=== PATIENT | female | born 1990 | race Caucasian/White ===

== ENCOUNTER 2020-03-23 02:34 | Emergency (ER) | payer BC ==
[~2020-03-23] VITALS: Ht 162.6 cm; Wt 80.7 kg
== END 2020-03-23 06:36 | disposition home or self-care (01) ==
LOC: ED 02:34
DX: O03.9 Complete or unspecified spontaneous abortion without complication (principal)
CPT/HCPCS: 76801; 76817; 80053; 81001; 84702; 85025; 86900; 86901; 99284-25

== ENCOUNTER 2020-07-22 22:31 | Emergency (ER) | payer BC, OTHER ==
[~2020-07-22] VITALS: Ht 162.6 cm; Wt 87.5 kg
== END 2020-07-23 01:55 | disposition home or self-care (01) ==
LOC: ED 22:31
DX: O20.0 Threatened abortion (principal); Z3A.12 12 weeks gestation of pregnancy; Z87.891 Personal history of nicotine dependence
CPT/HCPCS: 76801; 80053; 81001; 84702; 85025; 86900; 86901; 99284-25

== ENCOUNTER 2021-02-03 11:34 | Emergency (ER) | payer BC, OTHER ==
[~2021-02-03] VITALS: Ht 162.6 cm; Wt 101.0 kg
== END 2021-02-03 15:16 | disposition home or self-care (01) ==
LOC: ED 11:34
DX: O98.513 Other viral diseases complicating pregnancy, third trimester (principal); U07.1 COVID-19; Z87.891 Personal history of nicotine dependence
CPT/HCPCS: 80053; 85025; 99284-25; C9803; M0243; Q0244; U0003

== ENCOUNTER 2021-02-06 05:33 | Inpatient (IN) | payer BC, OTHER ==
--- NOTE | 2021-02-06 08:18 | PR ---
[facility] [address] [place], [place] [address] Signed Progress Notes IP Datetime Report Generated by CPN: 02/06/2021 08:18 PROGRESS NOTES: [id number] Impression: Non-reassuring Heart Rate Procedures: Intrauterine Pressure Catheter; Sterile Vag Exam Plan: Deliver- Section Informed Consent Obtain: Section Delivery; Risks, Benefits and Alternatives Discussed VITAL SIGNS: [id number] Vital Signs: Reviewed; Within Normal Limits EXAM: [id number] Dilatation: 6.0 Effacement: 80 Station: -2 Contractions: q 2 to 3 min MEMBRANES: [id number] Amniotic Fluid Color: Meconium, Heavy Comments: Continued issues with status despite multiple position changes. Contractions are inadequate but cannot increase strength given recurrent lates. I feel C/S is the safest option for delivery. PARQ done for C/S and consent obtained. FETUS A: [id number] FHR Baseline: 145 Variability: Moderate 6-25bpm Accelerations: 15X15 Decelerations: Late FHR Category: Category II Presentation: Vertex Comments on Fetus A: lates FETUS B: [id number] Signing Physician: Liza Ceja MD Copies: ~ *Electronically Signed* 02/06/21817 LIZA CEJA MD PATIENT NAME: BRANDON MARTINDENIA Pham PROGRESS NOTE DATE OF : 91 PHYSICIAN: LIZA CEJA MD RPT #: [id number] REPORT IS CONFIDENTIAL AND NOT TO BE RELEASED WITHOUT AUTHORIZATION
--- NOTE | 2021-02-06 09:50 | NUR ---
02/06/21 0950 Daria Foreman 0918 PT ARRIVED TO PACU ON RA, PT AT BEDSIDE. VSS. IV IN LEFT HAND AND INFUSING LR WITH 20 PIT. 0925 PT BLOWING HER NOSE AND VSS. 0949 PLAN OF CARE DISCUSSED. PT DENIES PAIN AND NAUSEA. PT TOOK SMALL SIP OF WATER AND HOB INCREASED SLIGHTLY.
--- NOTE | 2021-02-07 10:02 | PR ---
[facility] [address] [facility] [place], [place] [address] Signed PP Progress Notes Datetime Report Generated by CPN: 02/07/2021 10:02 SUBJECTIVE: [id number] Pain: Within Normal Limits Nausea/Vomiting: Denies Flatus: No Vital Signs: [id number] Vital Signs: Reviewed; Within Normal Limits EXAM: Ongoing Cardiovascular: Normal Respiratory: Normal Abdomen/Uterus: Abnormal Lochia: Normal Vulva/Perineum: Not Done Breasts: Not Done CVA Tenderness: Not Done Extremities: Normal Incision: Normal Progress: Normal Exam Comments: Abdomen with active BS. Fundus firm, NT @ U-2. H/H 12.3/36.1, WBC 6.9, 173k IMPRESSION/PLAN/PROCEDURES: [id number] Impression: Normal Progression Other Plans: ambulate Progress Notes: Doing well. Will increase activity. Possible D/C tomorrow. Signing Physician: Liza Ceja MD Copies: ~ *Electronically Signed* 02/07/21 1002 LIZA CEJA MD PATIENT NAME: MARTINSTEPHANIE C PROGRESS NOTE DATE OF : 91 PHYSICIAN: LIZA CEJA MD RPT #: [id number] REPORT IS CONFIDENTIAL AND NOT TO BE RELEASED WITHOUT AUTHORIZATION
--- NOTE | 2021-02-08 09:04 | PR ---
[facility] [address] [facility] [place], [place] [address] Signed PP Progress Notes Datetime Report Generated by CPN: 02/08/2021 09:04 SUBJECTIVE: [id number] Pain: Within Normal Limits Nausea/Vomiting: Denies Flatus: Yes Bowel Movement: Yes Vital Signs: [id number] Vital Signs: Reviewed; Within Normal Limits EXAM: Met Cardiovascular: Normal Respiratory: Normal Abdomen/Uterus: Abnormal Lochia: Normal Vulva/Perineum: Not Done Breasts: Not Done CVA Tenderness: Not Done Extremities: Normal Incision: Normal Progress: Normal Exam Comments: Abdomen with active BS. Fundus firm, NT @ U-2. IMPRESSION/PLAN/PROCEDURES: [id number] Impression: Normal Progression Plan: Remove Kp; Discharge Other Plans: ambulate Procedures: None Progress Notes: Doing well. I do think she is stable for D/C. Signing Physician: Liza Ceja MD Copies: ~ *Electronically Signed* 02/08/21903 LIZA CEJA MD PATIENT NAME: STEPHANIE MARTIN PROGRESS NOTE DATE OF : 91 PHYSICIAN: LIZA CEJA MD RPT #: [id number] REPORT IS CONFIDENTIAL AND NOT TO BE RELEASED WITHOUT AUTHORIZATION
--- NOTE | 2021-02-11 08:18 | OR ---
[facility] [address] [place], [place] [address] Signed DATE OF OPERATION: 02/06/2021 SURGEON: Troy Ceja MD PAPER BAG MAKING MACHINIST: Dr. Olvera. PREOPERATIVE DIAGNOSES: Term , non-reassuring heart rate tracing, active coronavirus disease. POSTOPERATIVE DIAGNOSES: Term , non-reassuring heart rate tracing, delivered and active coronavirus disease. PROCEDURE: Primary section with low segment transverse uterine incision. ANESTHESIA: Epidural. ESTIMATED BLOOD LOSS: 600 mL. DRAINS: Mora catheter. INDICATIONS AND FINDINGS: The patient is a 31-year-old female, 3, para 0, VIP 1, SAB 1, who was admitted at 40 and 2/7th weeks for labor. She was 5 cm on admission. She had spontaneous rupture of membranes shortly afterwards with thick meconium noted. heart tones were not reassuring, overall though there were times when it improved, but she was having recurrent late decels and occ severe variable prolonged decelerations. The decision was made to proceed with operative delivery as she had made little progress in her labor and delivery was still remote. She was counseled and taken to the operating room where she was delivered of a little girl from the ROP position via lower segment transverse uterine incision with Apgars of 8 and 9 and weight of 7 pounds 14 ounces. The uterus, tubes, ovaries, and placenta appeared normal. There was thick meconium at delivery. There was a cord around the neck loosely as well. DESCRIPTION OF PROCEDURE: Electronically Signed By: TROY CEJA MD 02/11/21 0818 PATIENT NAME: STEPHANIE MARTIN OPERATIVE REPORT DATE OF : 91 REPORT #: [id number] PHYSICIAN: TROY CEJA MD PCP: NO PRIMARY CARE PHYSICIAN REPORT IS CONFIDENTIAL AND NOT TO BE RELEASED WITHOUT AUTHORIZATION [facility] [address] [place], [place] [address] Signed The patient was prepped and draped in the supine position. A Pfannenstiel skin incision was made and carried down to the fascia. The incision was extended laterally. The inferior and superior fascial flaps were then created. The muscles were bluntly divided and the peritoneum opened bluntly and the incision extended bluntly. The Justin retractor was then placed. The uterine incision was made at the upper border of the peritoneal reflection. The baby was delivered with the above findings and handed off to the pediatric staff in attendance. The placenta was removed manually. The uterus was explored with a lap tape assuring no remaining fragments. The uterus was closed in 2 layers using 0 Monocryl. The first layer was a running locking stitch. The 2nd was a vertical imbricating stitch. Bleeding points on the peritoneum were controlled with cautery. The abdomen was then copiously irrigated and inspected and good hemostasis was noted. The retractor was removed and the peritoneum identified. An ACell graft was then laid over the lower segment to aid in healing. The peritoneum was then closed with a running suture of 3-0 Vicryl. The muscles were brought together with interrupted sutures of 0 Vicryl. Bleeding points on the muscle layer were controlled with cautery This layer was irrigated, inspected and good hemostasis noted. A Cell powder was then sprinkled over the muscles to aid in healing. The fascia was then closed from each angle to the midline with a running suture of 0 Vicryl. The subcu tissue was irrigated. Bleeding points were controlled with cautery. The deep space was closed with interrupted sutures of 3-0 Vicryl. The skin was closed with kalpana. All sponge and needle counts were correct. She tolerated the procedure well and was taken to the recovery room in good condition. Troy Ceja MD PJW/MODL /[id number] cc: Dr. Olvera Copies: ~ Electronically Signed By: TROY CEJA MD 02/11/21 0818 PATIENT NAME: STEPHANIE MARTIN OPERATIVE REPORT DATE OF : 91 REPORT #: [id number] PHYSICIAN: TROY CEJA MD PCP: NO PRIMARY CARE PHYSICIAN REPORT IS CONFIDENTIAL AND NOT TO BE RELEASED WITHOUT AUTHORIZATION
--- NOTE | 2021-02-11 16:48 | PATH ---
[facility] [address] [place], [place] [address] Signed SPECIMEN(S): A PLACENTA SPECIMEN SOURCE: A. PLACENTA CLINICAL HISTORY: Mother's age: 31. OB history: . Gestational age: 40 and 2/7. Infant's weight: 7 lbs 14 oz. score: 8/9. Rh O positive (Rhogam no). Antibody screen: Negative. Maternal serologies: Rubella immune, RPR NR, GBS negative. Specific issues of concern: COVID positive. FINAL PATHOLOGIC DIAGNOSIS: Placenta, delivery: - Mature reyes placenta with three-vessel umbilical cord (591 grams; 75th to 90th percentile for reported 40+2 weeks gestational age). - Mild acute chorionitis (grade 1/2; stage 1/3) with inflammatory response in the chorionic vessels (grade 1/2; stage 1/3). - Remote placental infarctions involving less than 5% of the placental parenchyma. BRP:sl:C2NR MICROSCOPIC EXAMINATION: Histologic sections of all submitted blocks are examined by light microscopy. These findings, together with the gross examination, support the pathologic diagnosis. GROSS DESCRIPTION: The specimen, labeled "KS, placenta," is received in formalin and consists of a reyes discoid placenta with the following parameters: Umbilical Cord: Insertion eccentric, measurement 21.0 x 1.2 cm; trivascular; hypo-coiled. Cord coiling index (per 10 cm): 2. Lesions: Not grossly identified. Membranes: Insertion site: Marginal, brown-syed, green-tinted and opaque, rupture site 4.0 cm from edge of disc. Other: Not grossly identified. Chorionic Plate: Normal radiating vascular pattern, blue-purple and shiny. Lesions: One yellow-syed subchorionic rubbery lesion (3.5 x 2.5 x 1.0 cm) located 3.0 cm from insertion umbilical cord. Other: Not grossly identified. Maternal Surface: Normal cotyledons, intact. Lesions: Multiple brown-syed, rubbery peripheral lesion (0.9 x 0.5 cm and extending 1.0 cm into the PATIENT NAME: STEPHANIE MARTIN PATHOLOGY DATE OF : 91 REPORT #: [id number] PHYSICIAN: GAGE LOPEZ PCP: NO PRIMARY CARE PHYSICIAN REPORT IS CONFIDENTIAL AND NOT TO BE RELEASED WITHOUT AUTHORIZATION [facility] [address] [place], [place] [address] Signed placenta). Measurement: 18.4 x 17.0 x 2.7 cm. Weight (trimmed): 591 grams. Cut Surface: Maroon and spongy. Lesions: Additional yellow-syed, rubbery intraparenchymal lesion (1.5 x 1.0 x 0.8 cm). Basal plate fibrin measures 0.1 cm in thickness. Other Findings: Not grossly identified. Cassette Summary: (A1) Membranes and umbilical cord (A2) Subchorionic and maternal surface lesion (A3) Intraparenchymal lesion (A4-A5) Placenta parenchyma AC (under the direct supervision of a pathologist) The Gross Description was prepared using a voice recognition system. The report was reviewed for accuracy; however, sound-alike word errors, addition and/or deletions may occur. If there is any question about this report, please contact Client Services. PERFORMING LABORATORY: The technical component was performed by [facility], [address] [place] [address] (Director Of Cardiology: Edna Leal MD; CLIA# [id number]). Professional interpretation was performed by [facility], [facility], [address] [address] (CLIA# [id number]). Diagnostician: Brice Samson MD Pathologist Electronically Signed 02/11/2021 Copies: ~ PATIENT NAME: STEPHANIE MARTIN PATHOLOGY DATE OF : 91 REPORT #: [id number] PHYSICIAN: GAGE PATHOLOGY PCP: NO PRIMARY CARE PHYSICIAN REPORT IS CONFIDENTIAL AND NOT TO BE RELEASED WITHOUT AUTHORIZATION
== END 2021-02-08 12:50 | disposition home or self-care (01) | DRG 786 ==
LOC: FBCO 05:33 → FBC 06:00
PROVIDERS: ADMIT Obstetrics & Gynecology; ATTEND Obstetrics & Gynecology
PROC: 10H07YZ Insertion of Other Device into Products of Conception, Via Natural or Artificial Opening (ICD-10-PCS; 2021-02-06)
PROC: 8E0ZXY6 Isolation (ICD-10-PCS; 2021-02-06)
PROC: 10D00Z1 Extraction of Products of Conception, Low, Open Approach (ICD-10-PCS; principal; 2021-02-06 08:55)
DX: O76 Abnormality in fetal heart rate and rhythm complicating labor and delivery (principal); U07.1 COVID-19; O98.52 Other viral diseases complicating childbirth; Z3A.40 40 weeks gestation of pregnancy; Z37.0 Single live birth; Z67.40 Type O blood, Rh positive; O69.81X0 Labor and delivery complicated by cord around neck, without compression, not applicable or unspecified; O77.0 Labor and delivery complicated by meconium in amniotic fluid
CPT/HCPCS: 01961; 82803; 85027; A9270; J0456; J0690; J1650; J1885; J2274; J2405; J2590; J2795; J3010; J3105; J7060; J7121

== ENCOUNTER 2023-03-26 06:50 | Day surgery (SDC) | payer BC, OTHER ==
[2023-03-16 14:21] VITALS: BP 119/83
[~2023-03-26] VITALS: Ht 162.6 cm; Wt 98.2 kg
[~2023-03-26 06:50] MED LIST: LEVOTHYROXINE100 MC2 PO
[2023-03-26 07:14] VITALS: BP 133/84
--- NOTE | 2023-03-26 07:45 | NUR ---
DS ROUNDS. 15 MINUTES. PROVIDED HOSPITALITY. PROVIDED SUPPORTIVE PRESENCE. PROVIDED PRAYER. PT EXPRESSED GRATITUDE.
[2023-03-26] MEDS ORDERED: HYDROCODON-ACE1 EA10 PO (08:47)
--- NOTE | 2023-03-26 08:55 | NUR ---
03/26/23 0855 Samantha Hernandez 0846 PT TO PACU AWAKE, ALERT AND TALKING. DENIES PAIN AND NAUSEA.
[2023-03-26 09:01] VITALS: BP 132/91
--- NOTE | 2023-03-27 09:35 | OR ---
[facility] [address] [place], [place] [address] Signed DATE OF OPERATION: 03/26/2023 SURGEON: Dallin Hernandez MD PREOPERATIVE DIAGNOSIS: Carpal tunnel syndrome, right. POSTOPERATIVE DIAGNOSIS: Carpal tunnel syndrome, right. PROCEDURE PERFORMED: Right carpal tunnel release. DISTRICT GAUGER: None. ANESTHESIA: Evangelist block. TOURNIQUET TIME: 20 minutes. BRIEF HISTORY: Inez is a 33-year-old female with progressive worsening of pain and numbness in her hand. Nerve conduction studies were consistent with carpal tunnel. Risks, benefits, and alternatives were discussed with her once conservative treatment had failed. She elected to proceed. DESCRIPTION OF PROCEDURE: Once consent was obtained, she was taken to the operating room. After adequate anesthesia, she was placed on the day surgery bed with a hand table. The arm was then prepped and draped in a standard sterile fashion after establishment of the [place] block. The wrist was approached through a 1.5 cm incision and the distal wrist crease carried through skin and subcutaneous tissue. The palmaris longus was quite robust and was retracted and protected. Under loupe magnification, the transverse carpal ligament was identified and dissected free of overlying soft tissue. It was then released proximally a centimeter and distally to the distal extent. This was palpating using the [place] to confirm complete release. The wound was then copiously irrigated with normal saline, closed with 3-0 nylon and injected with 7 mL of 0.25% Marcaine plain. The wound was then Electronically Signed By: DALLIN HERNANDEZ MD 03/27/23 0935 PATIENT NAME: INEZ MARTIN OPERATIVE REPORT DATE OF : 91 REPORT #: [id number] PHYSICIAN: DALLIN HERNANDEZ MD PCP: INDIRA GRIMES PA-C REPORT IS CONFIDENTIAL AND NOT TO BE RELEASED WITHOUT AUTHORIZATION [address] [place], [place] [address] Signed dressed with bacitracin, Adaptic, 4x8's, and gauze. She tolerated the procedure well. All sponge, needle, and instrument counts were correct. Dallin Hernandez MD BA/DEANL /[id number] Copies: ~ Electronically Signed By: DALLIN HERNANDEZ MD 03/27/23 0935 PATIENT NAME: INEZ MARTIN OPERATIVE REPORT DATE OF : 91 REPORT #: [id number] PHYSICIAN: DALLIN HERNANDEZ MD PCP: INDIRA GRIMES PA-C REPORT IS CONFIDENTIAL AND NOT TO BE RELEASED WITHOUT AUTHORIZATION
== END 2023-03-26 09:12 | disposition home or self-care (01) ==
LOC: DS 06:50
PROVIDERS: ATTEND Specialist
PROC: 01N50ZZ Release Median Nerve, Open Approach (ICD-10-PCS; principal; 2023-03-26 08:50)
DX: G56.01 Carpal tunnel syndrome, right upper limb (principal); E07.9 Disorder of thyroid, unspecified
CPT/HCPCS: 01810; 84703; J0690; J1885; J2250; J2405; J2704; J7121

== ENCOUNTER 2024-11-06 10:42 | Inpatient (IN) | payer BC ==
[~2024-11-06] VITALS: Ht 160 cm; Wt 112.5 kg
[~2024-11-06 10:42] MED LIST changes: +HYDROCODON-ACE1 EA10 PO
[2024-11-07] MEDS ORDERED: LACTATED RINGER'S 1,000 ML IV SCH ×2 (06:00→09:08)
[2024-11-07] MEDS ORDERED: LACTATED RINGER'S 2,000 ML IV PRN (06:00)
[2024-11-07 06:21] LABS: MCH 32.4 PG (25.6-32.2); MCHC 34.6 g/dL (32.2-35.5); MCV 93.5 fL (79.4-94.8); RBC 3.83 M/uL (3.93-5.22)
[2024-11-07 06:30] VITALS: BP 113/66
[2024-11-07] MEDS ORDERED: SOD+POT BICARB/CITRIC ACID 2 EA TABLET.EFF XX ONE (06:30)
[2024-11-07 06:34] LABS: AMPHETAMINES, URINE NEGATIVE (NEGATIVE); BARBITURATES, URINE NEGATIVE (NEGATIVE); BENZODIAZEPINE, URINE NEGATIVE (NEGATIVE); CANNABINOID, URINE NEGATIVE (NEGATIVE); COCAINE, URINE NEGATIVE (NEGATIVE); ECSTASY, URINE NEGATIVE (NEGATIVE); FENTANYL, URINE NEGATIVE (NEGATIVE); METHADONE, URINE NEGATIVE (NEGATIVE); OPIATES, URINE NEGATIVE (NEGATIVE); OXYCODONE, URINE NEGATIVE (NEGATIVE); PHENCYCLIDINE, URINE NEGATIVE (NEGATIVE)
[2024-11-07 07:00] LABS: ABO O; ANTIBODY SCREEN NEGATIVE; RH POSITIVE
[2024-11-07] MEDS ORDERED: CEFAZOLIN SODIUM 2 GM/20 ML SYR IV SCH (07:00)
[2024-11-07] MEDS ORDERED: OXYTOCIN 10 UNITS/ML VIAL ONE (07:01)
[2024-11-07] MEDS ORDERED: LIDOCAINE HCL 2% 5 ML SDV ONE (07:01)
[2024-11-07] MEDS ORDERED: fentaNYL citrate 100 MCG/2 ML VIAL ONE (07:01)
[2024-11-07] MEDS ORDERED: BUPIVACAINE 0.75% IN DEXTROSE 2 ML AMP ONE (07:01)
[2024-11-07] MEDS ORDERED: MORPHINE SULFATE 1 MG/ML VIAL ONE (07:01)
[2024-11-07] MEDS ORDERED: PHENYLEPHRINE HCL 10 MG/ML VIAL ONE (07:40)
[2024-11-07] MEDS ORDERED: LACTATED RINGER'S 1,000 ML IV ONE (07:43)
[2024-11-07 08:02] LABS: IS CROSSMATCH COMPATIBLE
[2024-11-07] MEDS ORDERED: NALOXONE HCL 0.4 MG SYR IV PRN (08:15)
[2024-11-07] MEDS ORDERED: METOCLOPRAMIDE HCL 10 MG/2 ML SDV IV PRN ×2 (08:15→09:15)
[2024-11-07] MEDS ORDERED: KETOROLAC TROMETHAMINE 30 MG/ML VIAL IV PRN (08:15)
[2024-11-07] MEDS ORDERED: PROCHLORPERAZINE EDISYLATE 10 MG/2 ML VIAL IV PRN ×2 (08:15→09:15)
[2024-11-07] MEDS ORDERED: HYDROmorphone HCL 1 MG/ML SYR IV PRN (08:15)
[2024-11-07] MEDS ORDERED: Ropivacaine HCl 0.5% 30 ML VIAL ONE (08:17)
[2024-11-07] MEDS ORDERED: SODIUM CHLORIDE 0.9% 20 ML IV ONE (08:17)
[2024-11-07] MEDS ORDERED: SENNOSIDES/DOCUSATE 1 EA TAB PO SCH (09:05)
[2024-11-07] MEDS ORDERED: OXYCODONE HCL 5 MG TAB PO PRN (09:15)
[2024-11-07] MEDS ORDERED: OXYTOCIN/0.9 % SODIUM CHLORIDE 500 ML IV SCH (09:15)
[2024-11-07] MEDS ORDERED: PROMETHAZINE HCL 25 MG TAB PO PRN (09:15)
[2024-11-07] MEDS ORDERED: PROMETHAZINE HCL 25 MG SUPP PR PRN (09:15)
--- NOTE | 2024-11-07 09:19 | NUR ---
11/07/24 0919 Nunu Kendrick 0910-PATIENT ARRIVED TO ROOM 104 FOR RECOVERY. PATIENT AWAKE DENIES PAIN OR NAUSEA. MEDICATED IN OR FOR ITCHING. PATIENT LAYING SUPINE SR HR 70'S. IVF INFUSING LR WITH 20 PITOCIN TO RIGHT HAND CDI. OLIVAS CATHETER DRAINING YELLOW URINE. DAD AT BEDSIDE HOLDING BABY. 09-PATIENT SLEEPING RA 92% RR EVEN.
[2024-11-07 09:32] VITALS: BP 110/70
[2024-11-07] MEDS ORDERED: SIMETHICONE 80 MG CHEW PO SCH (11:00)
[2024-11-07] MEDS ORDERED: IBUPROFEN 600 MG TAB PO SCH (14:00)
[2024-11-07] MEDS ORDERED: ACETAMINOPHEN 325 MG TAB PO SCH ×2 (14:00→17:00)
--- NOTE | 2024-11-07 14:28 | OR ---
[address] [address] Signed DATE OF OPERATION: 11/07/2024 SURGEON: Natacha Jeong MD PREOPERATIVE DIAGNOSES: 1. Intrauterine at 39 and 3/7th weeks. 2. Prior section, declines trial of labor. 3. Desires ovarian cancer risk reducing surgery. POSTOPERATIVE DIAGNOSES: 1. Intrauterine at 39 and 3/7th weeks. 2. Prior section, declines trial of labor. 3. Desires ovarian cancer risk reducing surgery. PROCEDURE: Repeat low transverse section, bilateral salpingectomy. FINDINGS: Clear amniotic fluid, vigorous male infant in vertex presentation. Apgars of 8 and 8. Weight yet to be determined. Normal uterus, tubes, and ovaries. QUANTITATIVE BLOOD LOSS: 493 mL. IV FLUID: 1700 mL crystalloid. URINE OUTPUT: 25 mL clear urine. DRAINS: Mora to gravity. COMPLICATIONS: None apparent. SPECIMENS: Bilateral fallopian tubes. TECHNIQUE IN DETAIL: Electronically Signed By: NATACHA JEONG MD 11/07/24 1428 PATIENT NAME: STEPHANIE MARTIN OPERATIVE REPORT DATE OF : 91 REPORT #: [id number] PHYSICIAN: NATACHA JEONG MD PCP: INDIRA GRIMES PA-C REPORT IS CONFIDENTIAL AND NOT TO BE RELEASED WITHOUT AUTHORIZATION [address] [address] Signed With informed consent, the patient was taken to the operating room where spinal anesthetic was placed. She was prepped and draped in sterile fashion. She was given 2 g of Ancef intravenously per protocol. Lower extremities were placed in SCD pneumatic compression devices. Time-out was performed per protocol. Under adequate spinal anesthetic, an approximately 7 inch Pfannenstiel skin incision was made at the site of the old incision. Sharp dissection was carried down to the layer of the rectus fascia, which was nicked in the midline. This fascial bal was enlarged bilaterally using sharp dissection. The rectus muscles were then from the overlying fascia using sharp dissection. This was initially done superiorly and then inferiorly. The rectus muscles were in the midline. Careful attention was paid to the prospect of underlying bladder or bowel. Once we got to the level of the peritoneum, surgeon's finger was used to puncture the peritoneum. A finger sweep on the anterior abdominal wall revealed no adhesions. The peritoneal opening was enlarged using sharp dissection first superiorly and then inferiorly. Blunt dissection was used to enlarge this opening. A bladder blade was inserted. There were some adhesions of the bladder to the midportion of the uterus on the left side. The serosa was then incised and using combination of sharp and blunt dissection, the bladder on the left side where the adhesions were freed and the bladder was brought down below the uterine incision site. Using a scalpel, a low transverse uterine incision was made. We carried this incision down to the superficial layers of the myometrium. Due to the vascular anterior lower uterine segment, the remainder of the myometrium and endometrium were punctured using the surgeon's finger. Blunt dissection was used to enlarge the hysterotomy site. The bulging membranes were ruptured with an Allis clamp. The surgeon's hand was placed into the lower uterine segment. head was elevated and delivered with fundal pressure. There was a nuchal cord x1, which was manually reduced. The shoulders delivered easily with fundal pressure and gentle traction. Cord was clamped x2 and cut and baby was handed to the transition team. The placenta delivered intact with a three-vessel cord using gentle traction and fundal massage. There was good uterine tone achieved with intravenous oxytocin and massage. The uterus was externalized and the uterine cavity was curetted with laparotomy sponges. The uterine incision was closed with 0 Monocryl in a running locked fashion. A second imbricating layer of 0 Monocryl was also placed in a running fashion. There was good hemostasis of the hysterotomy site. The posterior cul-de-sac was then cleared of all blood and clots. The left fallopian tube was identified and followed to its fimbriated end. The fallopian tube was elevated using two Wilian's clamps. Using the EnSeal device, the Electronically Signed By: NATACHA JEONG MD 11/07/24 1428 PATIENT NAME: STEPHANIE MARTIN OPERATIVE REPORT DATE OF : [birth year] REPORT #: [id number] PHYSICIAN: NATACHA JEONG MD PCP: INDIRA GRIMES PA-C REPORT IS CONFIDENTIAL AND NOT TO BE RELEASED WITHOUT AUTHORIZATION [facility] [address] [place] [id number] Signed proximal portion of the left fallopian tube was transected after double cauterization. The mesosalpinx was then cauterize and cut along its edge with a fallopian tube extending laterally to the end of the tube. The left fallopian tube was removed. The left mesosalpinx was inspected and found to be completely hemostatic. Same procedure was carried out on the right fallopian tube. Most notably, the larger vessels were cauterized twice. Excellent hemostasis was noted on the right mesosalpinx as well. The hysterotomy site was inspected again and noted to be hemostatic again. The uterus was then returned to the pelvis. The left and right pericolic gutters were inspected and cleared of all blood and clot. Uterine incision and bladder flap were inspected one final time and excellent hemostasis was noted. The rectus muscles and peritoneum were then reapproximated using 2-0 chromic in a running fashion. The rectus muscle bellies were inspected and found to be hemostatic. The rectus fascia was reapproximated using 0 Vicryl in a running fashion. The superficial incision was irrigated and rendered hemostatic with the electrocautery device. The subcutaneous tissue was reapproximated with 2-0 chromic. The skin was reapproximated with Insorb stapler device. Steri-Strips and bandage were placed. Uterus was expressed of all clots. DISPOSITION: The patient was taken to recovery room in stable condition. Natacha Jeong MD BB/MODL /[id number] Copies: ~ Electronically Signed By: NATACHA JEONG MD 11/07/24 1428 PATIENT NAME: STEPHANIE MARTIN OPERATIVE REPORT DATE OF : [birth year] REPORT #: [id number] PHYSICIAN: NATACHA JEONG MD PCP: INDIRA GRIMES PA-C REPORT IS CONFIDENTIAL AND NOT TO BE RELEASED WITHOUT AUTHORIZATION
[2024-11-07] MEDS ORDERED: FERROUS SULFATE 325 MG TAB PO SCH (17:00)
[2024-11-08] MEDS ORDERED: SOD+POT BICARB/CITRIC ACID 2 EA TABLET.EFF PO SCH (07:00)
== END 2024-11-09 11:40 | disposition home or self-care (01) | DRG 785 ==
LOC: FBC 11-07 05:30
PROVIDERS: ADMIT Obstetrics & Gynecology; ATTEND Obstetrics & Gynecology
PROC: 0UT70ZZ Resection of Bilateral Fallopian Tubes, Open Approach (ICD-10-PCS; 2024-11-07)
PROC: 4A1HXCZ Monitoring of Products of Conception, Cardiac Rate, External Approach (ICD-10-PCS; 2024-11-07)
PROC: 10D00Z1 Extraction of Products of Conception, Low, Open Approach (ICD-10-PCS; principal; 2024-11-07 07:30)
DX: O34.211 Maternal care for low transverse scar from previous cesarean delivery (principal); Z3A.39 39 weeks gestation of pregnancy; Z37.0 Single live birth; Z40.03 Encounter for prophylactic removal of fallopian tube(s); O69.81X0 Labor and delivery complicated by cord around neck, without compression, not applicable or unspecified; Z87.891 Personal history of nicotine dependence; O99.284 Endocrine, nutritional and metabolic diseases complicating childbirth; E06.3 Autoimmune thyroiditis; Z79.890 Hormone replacement therapy
CPT/HCPCS: 01961; 36415; 76942; 80307; 85027; 86850; 86900; 86901; 86922; A9270; J0690; J1200; J2003; J2274; J2371; J2405; J2590; J2795; J3010; J7121